=== PATIENT | female | born 2000 ===

== ENCOUNTER 2022-01-30 16:39 | Emergency (ER) | payer OTHER ==
[~2022-01-30] VITALS: Ht 165.1 cm; Wt 61.2 kg
[2022-01-30 16:39] VITALS: BP 105/71
[2022-01-30 18:30] LABS: Urine Bacteria NONE SEEN /hpf (None Seen); Urine Blood Negative /uL (Negative); Urine Mucus FEW (None Seen); Urine Specific Gravity 1.032 (1.001-1.035); Urine WBC 3 /hpf (0 - 5)
[2022-01-30] MEDS ORDERED: NITR-87 PO (21:06)
== END 2022-01-30 21:25 | disposition home or self-care (01) ==
LOC: ER 16:39
DX: O20.0 Threatened abortion (principal); O23.41 Unspecified infection of urinary tract in pregnancy, first trimester; N39.0 Urinary tract infection, site not specified; Z3A.01 Less than 8 weeks gestation of pregnancy
CPT/HCPCS: 36415; 76801; 76817; 81001; 84702